=== PATIENT | female | born 1975 | race Caucasian/White ===

== ENCOUNTER 2017-01-20 11:26 | Emergency (ER) | payer OTHER ==
[~2017-01-20] VITALS: Ht 152.4 cm; Wt 61.0 kg
[~2017-01-20 11:26] MED LIST: FLUO40CA8 PO; LEVO75TA5 PO
[2017-01-20 11:30] VITALS: TEMP 36.7; Ht 152.4 cm; Wt 61.0 kg
[2017-01-20 12:09] VITALS: O2SAT 100
[2017-01-20] MEDS ORDERED: LEVO88TA PO (12:33)
[2017-01-20 13:17] LABS: BASO % 0.5 %; BASO ABS # 0.04 K/uL (0-0.2); COMPLETE YES; EOS % 3.5 %; HEMATOCRIT 40.1 % (37-47); IG% 0.1 %; LYMPH % 24.7 %; LYMPH ABS # 2.11 K/uL (1.2-3.4); MEAN CELL VOLUME 95.9 fL (80-100); MEAN CORPUSCULAR HEMOGLOBIN 33.3 pg (25-34); MEAN CORPUSCULAR HGB CONC 34.7 g/dl (32-36); MEAN PLATELET VOLUME 10.8 fL (7.4-10.4); MONO % 6.1 %; NEUT % 65.1 %; PLATELET COUNT 297 K/uL (130-400); RED BLOOD COUNT 4.18 M/uL (4.2-5.4); WHITE BLOOD COUNT 8.54 K/uL (4.8-10.8)
[2017-01-20 13:19] LABS: VEN BLD GAS O2 SATURATION 66.8 %; VEN BLOOD GAS BASE EXCESS -0.4 mEq/L
--- NOTE | 2017-01-20 13:24 | DIAGNOSTIC IMAGING REPORT ---
CHEST ONE VIEW PORTABLE CLINICAL HISTORY: Atypical chest pain COMPARISON STUDY: 04/13/2015 FINDINGS: The cardiac and mediastinal contours are normal. There is no evidence of focal pulmonary consolidation. There is no evidence of failure. No pleural effusions are visualized.[ The right-sided PICC catheter has been removed. IMPRESSION: No active disease in the chest. Electronically signed by: Cristopher Hu M.D. 01/20/2017 1:23 PM Dictated Date/Time: 01/20/2017 1:23 PM
[2017-01-20 13:39] LABS: ALT/SGPT 33 U/L (12-78); AST/SGOT 14 U/L (15-37); BLOOD UREA NITROGEN 8 mg/dl (7-18); BUN/CREATININE RATIO 10.1 (10-20); CALCIUM 8.6 mg/dl (8.5-10.1); CARBON DIOXIDE 24 mmol/L (21-32); CHLORIDE 109 mmol/L (98-107); CREATININE 0.79 mg/dl (0.60-1.20); GLUCOSE 74 mg/dl (70-99); SODIUM 140 mmol/L (136-145)
[2017-01-20 13:50] LABS: ALKALINE PHOSPHATASE 88 U/L (45-117)
[2017-01-20 14:20] VITALS: BP 106/49; PULSE 75; O2SAT 99
--- NOTE | 2017-01-20 14:31 | EMERGENCY ROOM VISIT NOTE ---
History Report prepared by Neymar: Korina Townsend Under the Supervision of: Dr. Eugene Gallo M.D. First contact with patient: 12:17 Chief Complaint: CHEST PAIN Stated Complaint: CHEST PAINS- RECOMMENDED GETTING CHECKED Nursing Triage Summary: woke up around 4 wiht chest pain and left shoulder pain radiating around the front and "feels like my heart is fluttering' C/O sob has a appt wiht PMD today but came here first History of Present Illness The patient is a 41 year old female who presents to the Emergency Room with complaints of an episode of chest pain starting ten hours ago. The patient states that she woke up with it early this morning. She states that the pain shoots into her neck and shoulder blade. She describes it as sharp. The patient states that she went back to sleep and woke up without it. She states that she went to work and that while there, the pain returned. She states that it lasted 40 minutes before she called her PCP who told her to come to the ED. She currently rates her pain as a 2/10 in severity. The patient complains of lightheadedness, nausea, diaphoresis, and chills. The patient denies vomiting, tingling, recent travel, a history of blood clots, stress, recent trauma, a cough, and a fever. The patient notes a history of Ivan disease, hypothyroidism, anxiety, and an umbilical hernia repair. Source of History: patient Onset: ten hours ago Position: chest Symptom Intensity: 2/10 Quality: sharp Timing: other (episode) Associated Symptoms: + chills, + diaphoresis, + neck pain, + nausea, No fevers, No cough, No vomiting Note: The patient complains of the pain radiating into her shoulder and lightheadedness. The patient denies tingling, recent travel, a history of blood clots, stress, and recent trauma. Review of Systems See HPI for pertinent positives and negatives. A total of ten systems were reviewed and were otherwise negative. Past Medical & Surgical Medical Problems: (1) Anxiety (2) Ivan's disease (3) Hypothyroidism Surgical Problems: (1) Hx of umbilical hernia repair Family History Patient reports no known family medical history. Social History Smoking Status: Former Smoker Alcohol Use: occasionally Drug Use: none Occupation Status: employed Current/Historical Medications Scheduled Fluoxetine Hcl (Prozac), 40 MG PO HS Levothyroxine Sodium (Synthroid), 88 MCG PO DAILY Allergies Coded Allergies: Cephalexin (Verified Allergy, Severe, SHORTNESS OF BREATH, 01/20/17) FACE/TONGUE SWELL Ciprofloxacin (Verified Allergy, Severe, SHORTNESS OF BREATH, 01/20/17) FACE/TONGUE SWELLS UP Nitrofurantoin (Verified Allergy, Severe, SHORTNESS OF BREATH, chest pressure, 01/20/17) Sulfamethoxazole w/Trimethoprim (Verified Allergy, Intermediate, HIVES, rash, 01/20/17) Physical Exam Vital Signs Date Time Temp Pulse Resp B/P (MAP) Pulse Ox O2 Delivery O2 Flow Rate FiO2 01/20/17 14:20 75 18 106/49 99 Room Air 01/20/17 12:09 100 Room Air 01/20/17 12:09 88 16 119/57 100 Room Air 01/20/17 11:40 84 01/20/17 11:30 36.7 102 20 147/75 93 Pain Rating (0-10): 1.0 Physical Exam GENERAL: Awake, alert, well-appearing, NAD HENT: Normocephalic, atraumatic. EYES: Normal conjunctiva. Sclera non-icteric. NECK: Supple. No nuchal rigidity. FROM. RESPIRATORY: CTAB, no rhonchi, wheezing, crackles CARDIAC: RRR, no MRG ABDOMEN: Soft, NTND, BS+ MSK: No chest wall TTP, no LE edema. Negative Lr sign. No petechia. NEURO: GCS 15, CN 2-12 intact, moves all 4s on command SKIN: No rash or jaundice noted. Medical Decision & Procedures ER Provider Diagnostic Interpretation: Radiology results as stated below per my review and radiologist interpretation: CHEST ONE VIEW PORTABLE CLINICAL HISTORY: Atypical chest pain COMPARISON STUDY: 04/13/2015 FINDINGS: The cardiac and mediastinal contours are normal. There is no evidence of focal pulmonary consolidation. There is no evidence of failure. No pleural effusions are visualized.[ The right-sided PICC catheter has been removed. IMPRESSION: No active disease in the chest. Electronically signed by: Cristopher Hu M.D. 01/20/2017 1:23 PM Dictated Date/Time: 01/20/2017 1:23 PM Laboratory Results 01/20/17 13:02 Red Blood Count 4.18, Mean Corpuscular Volume 95.9, Mean Corpuscular Hemoglobin 33.3, Mean Corpuscular Hemoglobin Concent 34.7, Mean Platelet Volume 10.8, Neutrophils (%) (Auto) 65.1, Lymphocytes (%) (Auto) 24.7, Monocytes (%) (Auto) 6.1, Eosinophils (%) (Auto) 3.5, Basophils (%) (Auto) 0.5, Neutrophils # (Auto) 5.56, Lymphocytes # (Auto) 2.11, Monocytes # (Auto) 0.52, Eosinophils # (Auto) 0.30, Basophils # (Auto) 0.04 01/20/17 13:02 Test 01/20/17 13:02 White Blood Count 8.54 K/uL (4.8-10.8) Red Blood Count 4.18 M/uL (4.2-5.4) Hemoglobin 13.9 g/dL (12.0-16.0) Hematocrit 40.1 % (37-47) Mean Corpuscular Volume 95.9 fL (80-100) Mean Corpuscular Hemoglobin 33.3 pg (25-34) Mean Corpuscular Hemoglobin Concent 34.7 g/dl (32-36) Platelet Count 297 K/uL (130-400) Mean Platelet Volume 10.8 fL (7.4-10.4) Neutrophils (%) (Auto) 65.1 % Lymphocytes (%) (Auto) 24.7 % Monocytes (%) (Auto) 6.1 % Eosinophils (%) (Auto) 3.5 % Basophils (%) (Auto) 0.5 % Neutrophils # (Auto) 5.56 K/uL (1.4-6.5) Lymphocytes # (Auto) 2.11 K/uL (1.2-3.4) Monocytes # (Auto) 0.52 K/uL (0.11-0.59) Eosinophils # (Auto) 0.30 K/uL (0-0.5) Basophils # (Auto) 0.04 K/uL (0-0.2) RDW Standard Deviation 45.2 fL (36.4-46.3) RDW Coefficient of Variation 13.1 % (11.5-14.5) Immature Granulocyte % (Auto) 0.1 % Immature Granulocyte # (Auto) 0.01 K/uL (0.00-0.02) Venous Blood pH 7.45 (7.36-7.41) Venous Blood Partial Pressure CO2 34 mmHg (38.0-50.0) Venous Blood Partial Pressure O2 32 mmHg Venous Blood HCO3 23 mmol/L Venous Blood Oxygen Saturation 66.8 % Venous Blood Base Excess -0.4 mEq/L Anion Gap 7.0 mmol/L (3-11) Est Creatinine Clear Calc Drug Dose 78.0 ml/min Estimated GFR () 109.3 Estimated GFR (Non- 94.3 BUN/Creatinine Ratio 10.1 (10-20) Calcium Level 8.6 mg/dl (8.5-10.1) Total Bilirubin 0.3 mg/dl (0.2-1) Direct Bilirubin < 0.1 mg/dl (0-0.2) Aspartate Amino Transf (AST/SGOT) 14 U/L (15-37) Alanine Aminotransferase (ALT/SGPT) 33 U/L (12-78) Alkaline Phosphatase 88 U/L (45-117) Total Protein 7.4 gm/dl (6.4-8.2) Albumin 3.9 gm/dl (3.4-5.0) Lipase 166 U/L (73-393) Thyroid Stimulating Hormone (TSH) 2.390 uIu/ml (0.300-4.500) Laboratory results reviewed by me ECG Indication: chest pain Rate (beats per minute): 85 Rhythm: normal sinus Findings: other (normal [place] QRS QTC intervals, normal axis, ? T wave flattening in lead 3, no other STS changes or TWI) ED Course 1342: The patient was evaluated in room A2. A complete history and physical exam was performed. 1406: I reevaluated the patient. Discussed results and discharge instructions: She verbalized understanding and agreement. The patient is ready for discharge. Medical Decision The patient is a 41 year old female who presents to the Emergency Room with complaints of an episode of chest pain starting ten hours ago. The patient notes a history of Ivan disease, hypothyroidism, anxiety, and an umbilical hernia repair. Differential diagnoses include anxiety, costochondritis, PE. I reviewed the lab work in addition to EKG chest x-ray with patient. Patient had a negative chest x-ray fairly unremarkable EKG. The patient's chest pain did not have a suspicious story. I discussed with the patient that we did not get a troponin today given the low likelihood of ACS given her lack of risk factors, history and physical, nonsmoking status, and no family history of early cardiac disease or sudden cardiac . Patient was in agreement. Patient is a ER C negative thus PE less likely. Patient most likely may have had an episode of anxiety as she is being treated for it and may be related to reproducible chest wall pain as this was evident on exam. Patient was told to follow up with her PCP as well as return if she has worsening or recurrent symptoms. Impression Primary Impression: Chest wall pain Scribe Attestation The scribe's documentation has been prepared under my direction and personally reviewed by me in its entirety. I confirm that the note above accurately reflects all work, treatment, procedures, and medical decision making performed by me. Departure Information Dispostion Home / Self-Care Referrals Jodie Penaloza M.D. (PCP) Forms HOME CARE DOCUMENTATION FORM, IMPORTANT VISIT INFORMATION Patient Instructions Chest Pain - [facility], [facility] Additional Instructions Please follow up with her primary care physician as needed. If you worsening or recurrent symptoms his return to the emergency department or call your primary care physician's office. Work Instructions Return To Work: 1 day Lifting Limitations: none
== END 2017-01-20 14:50 | disposition home or self-care (01) ==
LOC: C.EDA 13:14
DX: R07.89 Other chest pain (principal); F41.9 Anxiety disorder, unspecified; E06.3 Autoimmune thyroiditis; E03.9 Hypothyroidism, unspecified; Z87.891 Personal history of nicotine dependence